=== PATIENT | female | born 1985 | race African-American/Black ===

== ENCOUNTER 2021-06-13 15:31 | Outpatient (RCR) | payer OTHER, SELFPAY ==
--- NOTE | 2021-06-13 17:47 | PT.OIE ---
Current Diagnoses Other migraine, not intractable, without status migrainosus (06/13/21) Benign paroxysmal vertigo, left ear (06/13/21) Visit Care Team Role Provider Type JOSH Clark Primary Care Provider Non-Staff Specialty: Family Practice Address: [address] , [place], [address] Email: Trini Redmond MD Attending Provider Non-Staff Referring Provider Specialty: Neurology Address: [place], [address] Email: Physical Therapy Initial Evaluation PT-OP-A Visit Information Start: 06/13/21 16:32 Freq: Status: Active Protocol: Document 06/13/21 16:00 DCW (Rec: 06/13/21 16:45 DCW [id number]) Out-Patient Physical Therapy Visit Information Visit Information Visit Type Initial Evaluation Visit Start Time 16:00 Visit Stop Time 16:30 Total Visit Minutes 30 Visit Number 1 Number of CLINICAL INFORMATICS EDUCATOR Visits 0 Evaluation Information Evaluation Date 06/13/21 PT-OP-B Current Condition Start: 06/13/21 16:32 Freq: Status: Active Protocol: Document 06/13/21 16:00 DCW (Rec: 06/13/21 16:45 DCW [id number]) Current Condition History of Current Condition Onset Date 11 year migraine history Current Complaints Vertigo/dizziness before, during or after migraine activity History of Current Condition Pt is a 36 year old female with an 11 year history of migraine. Pt reports that recently she has been getting rotational vertigo associated with her migraines, often knows that she is going to start a migraine due to sudden onset dizziness. Dizziness will last seconds to minutes. Does note that when it is occurring, she will occasionally feel worse with positional changes or getting up too quickly. Pt does note that both her migraines and vertigo have greatly reduced in frequency following a recent change in medication. Pt referred here by neurologist who felt she may be showing some symptoms of inner ear dysfunction to rule in/out other inner ear related disorder. PT-OP-C Subjective Start: 06/13/21 16:32 Freq: Status: Active Protocol: Document 06/13/21 16:00 DCW (Rec: 06/13/21 16:45 [facility] [id number]) OP-PT Subjective Patient Comments Patient Comments I don't really know what I'm here for, just following the doctor's orders. Patient Questionnaires Dizziness Handicap Inventory DHI Score 26% OP-PT Pain Assessment Pain Assessment Grid Paper Pain Assessment Grid Completed Headache PT-OP-O Vestibular Start: 06/13/21 16:32 Freq: Status: Active Protocol: Document 06/13/21 16:00 DCW (Rec: 06/13/21 16:45 [facility] [id number]) Vestibular Assessment Auditory Tests Carlton Test Within normal limits Air Conduction Results Equal Visual Testing Smooth Pursuits Horizontal WNL Smooth Pursuits Vertical WNL Saccades Horizontal WNL Saccades Vertical WNL Gaze Evoked Nystagmus With Fixation Negative Gaze Evoked Nystagmus Without Fixation Negative Heave Test Negative Thrust Head Negative Head Shake Negative Spontaneous Nystagmus Negative Positional Testing Nyla-Hallpike Negative Left,Negative Right Rolling Test Negative Left,Negative Right Supine to Sit Negative PT-OP-T Assessment and Plan Start: 06/13/21 16:32 Freq: Status: Active Protocol: Document 06/13/21 16:00 DCW (Rec: 06/13/21 17:46 [facility] [id number]) Physical Therapy Assessment Rehab Potential Rehabilitation Potential Fair Evaluation Complexity Number of Personal Factors/Comorbidities 3 or More Number of Body Systems Impaired 1-2 Clinical Presentation at Evaluation Unstable Assessment Summary Assessment Pt presents today with a completely unremarkable vestibular evaluation. Pt did not have any positive tests, and no signs suggestive of either a central or peripheral cause to her complaints of vertigo. With patient's history and negative evaluation, most likely cause of her vertigo is migraine associated dizziness, as she has a history of migraine which reduces ability to carry out ADLs, dizziness associated with her migraine, and both her migraine and dizziness responded well to recent change in medication. Unfortunately, migraine associated dizziness has not been shown to respond well to vestibular therapy. Pt unlikely to benefit from any further therapy, will be discharged from skilled PT at this time. Physical Therapy Plan Frequency and Duration Frequency of Treatment 1x/Week Duration of Treatment One day Plan of Care Start Date 06/13/21 Plan of Care End Date 06/14/21 Discharge Physical Therapy Discharge Reasons No Longer Attending PT Next Visit Focus/Plan Next Note Type Discharge Summary
--- NOTE | 2021-06-13 17:47 | PT.OPPOC ---
Physical, Occupational & Speech Therapy At [facility] Current Diagnoses Other migraine, not intractable, without status migrainosus (06/13/21) Benign paroxysmal vertigo, left ear (06/13/21) Visit Care Team Role Provider Type JOSH Clark Primary Care Provider Non-Staff Specialty: Family Practice Address: [address] [place] [address] [place], [address] Email: Trini Redmond MD Attending Provider Non-Staff Referring Provider Specialty: Neurology Address: [address] [place], [address] Email: Plan Of Care PT-OP-T Assessment and Plan Start: 06/13/21 16:32 Freq: Status: Active Protocol: Document 06/13/21 16:00 DCW (Rec: 06/13/21 17:46 DCW [id number]) Physical Therapy Assessment Rehab Potential Rehabilitation Potential Fair Evaluation Complexity Number of Personal Factors/Comorbidities 3 or More Number of Body Systems Impaired 1-2 Clinical Presentation at Evaluation Unstable Assessment Summary Assessment Pt presents today with a completely unremarkable vestibular evaluation. Pt did not have any positive tests, and no signs suggestive of either a central or peripheral cause to her complaints of vertigo. With patient's history and negative evaluation, most likely cause of her vertigo is migraine associated dizziness, as she has a history of migraine which reduces ability to carry out ADLs, dizziness associated with her migraine, and both her migraine and dizziness responded well to recent change in medication. Unfortunately, migraine associated dizziness has not been shown to respond well to vestibular therapy. Pt unlikely to benefit from any further therapy, will be discharged from skilled PT at this time. Physical Therapy Plan Frequency and Duration Frequency of Treatment 1x/Week Duration of Treatment One day Plan of Care Start Date 06/13/21 Plan of Care End Date 06/14/21 Discharge Physical Therapy Discharge Reasons No Longer Attending PT Next Visit Focus/Plan Next Note Type Discharge Summary Plan of Care Dates Plan of Care Start Date 06/13/21 Plan of Care End Date 06/14/21 Electronically Signed by: Hugo Stokes, PT 06/13/21 1747 Please Sign and Return: I have reviewed this Plan of Care and certify that the skilled therapy services above are required to meet the patient?s needs. Physician Signature Date Printed Name and Credentials Clinical Instructor Signature Printed Name and Credentials
== END 2021-06-21 11:15 ==
LOC: PHYS 15:31
PROVIDERS: PCP Nurse Practitioner Family; Referring Provider Psychiatry & Neurology Neurology; Visit Provider Psychiatry & Neurology Neurology
DX: H81.12 Benign paroxysmal vertigo, left ear (principal); G43.809 Other migraine, not intractable, without status migrainosus
CPT/HCPCS: 97161